=== PATIENT | female | born 1960 | race Caucasian/White ===

== ENCOUNTER → 2021-06-17 | Outpatient (CLI) | payer OTHER ==
[~2021-06-17] MED LIST: ALTACE5 MG PO; ASPIRIN EC81 MG PO; BUPRENORPHIN-N1 EACH SL; CEFUROXIME500 MG PO; COLACE 100MG C100 MG PO; DULERA 200 MCG8.8 GM INH; FERROUS SULFAT325 M2 PO; IPRAT-ALBUT 0.5-3 ML NEB; LEVAQUIN500 MG PO; LEVOFLOXACIN250 MG PO; MEDROL4 MG PO; OMEPRAZOLE20 MG PO; SPIRIVA RESPIMAT4 GM INH; SYMBICORT 160-1 INHA INH; VENTOLIN HFA 66.7 GM INH; ZITHROMAX500 MG PO
== END ==
LOC: LAB 16:21
DX: Z79.899 Other long term (current) drug therapy (principal)
CPT/HCPCS: 36415; 80076